=== PATIENT | female | born 2000 | race Caucasian/White ===

== ENCOUNTER 2020-09-04 09:09 | Emergency (ER) | payer OTHER ==
[2020-09-04 09:43] LABS: BILIRUBIN NEGATIVE (NEGATIVE); BLOOD NEGATIVE Ery/uL (NEGATIVE); COLOR YELLOW (YELLOW); GLUCOSE (U) NORMAL (NORMAL); LEUKOCYTES NEGATIVE Leu/uL (NEGATIVE); NITRITE NEGATIVE (NEGATIVE); PROTEIN NEGATIVE (NEGATIVE)
[2020-09-04 09:44] LABS: BASOPHIL 0.6 % (0-2); EOSINOPHIL 0.5 % (0-5); HCT 43.7 % (37.0-47.0); HGB 13.7 g/dl (12.5-16.0); LYMPHOCYTE 28.3 % (15-48); MCH 29.9 pg (25.0-31.0); MCHC 31.4 g/dL (32.0-36.0); MCV 95.4 fL (78.0-100.0); MONOCYTE 9.7 % (0-12); MPV 9.9 fL (6.0-9.5); NEUTROPHIL 59.8 % (41-80); NRBC 0; PLT 275 K/uL (150-400); RBC 4.58 M/uL (4.20-5.40); RDW 12.7 % (11.5-14.0); WBC 9.6 K/uL (4.0-10.5)
[2020-09-04 09:44] LABS: CLARITY SLIGHTLY HAZY (CLEAR)
[2020-09-04 09:57] LABS: BUN/CREAT RATIO (CALC) 13.2 RATIO; CREATININE 0.76 mg/dL (0.51-0.95); POTASSIUM 4.7 mmol/L (3.5-5.1)
== END 2020-09-04 11:38 | disposition home or self-care (01) ==
LOC: FER 09:09
PROVIDERS: Emergency Medicine
DX: O26.891 Other specified pregnancy related conditions, first trimester (principal); R10.2 Pelvic and perineal pain; R11.0 Nausea; Z87.891 Personal history of nicotine dependence; Z3A.01 Less than 8 weeks gestation of pregnancy
CPT/HCPCS: 36415; 76801; 80048; 81003; 84702; 85025